=== PATIENT | female | born 1970 | race Caucasian/White ===

== ENCOUNTER 2016-05-21 23:29 | Emergency (ER) | payer OTHER ==
[~2016-05-21] VITALS: Ht 154.9 cm; Wt 90.4 kg
[~2016-05-21 23:29] MED LIST: ABILIFY15 MG PO; ABILIFY30 MG PO; ALPRAZOLAM ER1 MG PO; AMBIEN5 MG PO; ATARAX,VISTARIL50 MG PO; BACLOFEN10 MG PO; CIPRO500 MG PO; CLARITIN10 M3 PO; CLONAZEPAM1 MG PO; CLONIDINE HCL0.1 MG PO; CYMBALTA60 MG PO; Claritin,Alavart PO; Cymbalta PO; DESYREL 150 MG150 MG PO; DILAUDID2 MG PO; DOXEPIN PO; Depakote PO; ENDOCET 10-6501 EACH PO; FLEXERIL10 MG PO; GLYCOLAX225 GM PO; KLONOPIN1 MG PO; KlonoPIN PO; LATUDA20 MG PO; LEVOTHROID50 MCG PO; LEVOTHYROXINE50 MCG PO; LITHIUM CARBON300 M2 PO; LYRICA25 MG PO; LYRICA75 MG PO; Levothroid,Synthroid PO; MOBIC15 MG PO; MONTELUKAST SOD10 MG PO; MOTRIN IB200 MG PO; MOTRIN400 MG PO; MOTRIN800 MG PO; Miralax, Glycolax PO; NEURONTIN100 MG PO; NORCO 5/3251 TABLET PO; OXCARBAZEPINE300 MG PO; PAXIL30 MG PO; PEN-VEE K,VEET500 MG PO; PERCOCET 10/1 TABLET PO; PREDNISONE10 MG PO; PRILOSEC OTC20 M1 PO; PROAIR HFA8.5 GM IH; PROZAC20 MG PO; Percocet 10/325,Endo PO; Relafen PO; SERTRALINE HCL100 MG PO; SIMVASTATIN20 MG PO; SINUS & ALLERG120 MG PO; SUMATRIPTAN SUC25 MG PO; TEMAZEPAM15 MG PO; TOPAMAX25 MG PO; TOPIRAMATE100 MG PO; TRAMADOL HCL50 MG PO; TRILEPTAL300 MG PO; TYLENOL EXTRA500 MG PO; ULTRAM50 MG PO; VYVANSE20 MG PO; XANAX1 MG PO; ZOLPIDEM TARTRAT5 MG PO; Zocor PO
[2016-05-22] MEDS ORDERED: NAPROSYN500 MG PO (01:27)
[2016-05-22] MEDS ORDERED: PREDNISONE20 MG PO (01:27)
[2016-05-22] MEDS ORDERED: MEDROL DOSEPAK4 MG PO (01:27)
[2016-05-22] MEDS ORDERED: FLEXERIL10 MG PO (01:37)
[2016-05-22 01:45] VITALS: BP 142/89
== END 2016-05-22 01:46 | disposition home or self-care (01) ==
LOC: EME 23:29
DX: M54.42 Lumbago with sciatica, left side (principal); J30.2 Other seasonal allergic rhinitis
CPT/HCPCS: 99281; 99284; J1100

== ENCOUNTER 2017-05-10 20:00 | Emergency (ER) | payer OTHER ==
[~2017-05-10] VITALS: Ht 152.4 cm; Wt 86.3 kg
[~2017-05-10 20:00] MED LIST changes: +MEDROL DOSEPAK4 MG PO; +NAPROSYN500 MG PO; +PREDNISONE20 MG PO
[2017-05-11] MEDS ORDERED: FLEXERIL10 MG PO (00:11)
[2017-05-11] MEDS ORDERED: PREDNISONE20 MG PO (00:11)
[2017-05-11] MEDS ORDERED: MOTRIN800 MG PO (00:11)
[2017-05-11 01:11] VITALS: BP 126/70
== END 2017-05-11 01:12 | disposition home or self-care (01) ==
LOC: RME 20:00 → EME 20:00 → RME 05-11 01:12
DX: M54.41 Lumbago with sciatica, right side (principal); M54.42 Lumbago with sciatica, left side; E78.5 Hyperlipidemia, unspecified; F31.9 Bipolar disorder, unspecified
CPT/HCPCS: 99281; 99284; J7512

== ENCOUNTER 2017-11-07 05:41 | Day surgery (SDC) | payer OTHER ==
[~2017-11-07] VITALS: Ht 152.4 cm; Wt 86.2 kg
[~2017-11-07 05:41] MED LIST changes: +CATAPRES0.2 MG PO; +ERGOCALCIF50000 UNIT PO; +INDERAL10 MG PO; +LATUDA120 MG PO; +LITHIUM CARBON300 MG PO; +LORCET PLUS 7.1 EACH PO; +NEURONTIN300 MG PO; +SINEQUAN50 MG PO; +TOPAMAX50 MG PO; +ZOCOR20 MG PO
[2017-11-07 06:12] VITALS: BP 109/67
[2017-11-07 11:45] VITALS: BP 119/69
[2017-11-07 12:40] VITALS: BP 139/75
== END 2017-11-07 12:54 | disposition home or self-care (01) ==
LOC: SDC
PROC: 0WBN4ZX Excision of Female Perineum, Percutaneous Endoscopic Approach, Diagnostic (ICD-10-PCS; principal; 2017-11-07)
PROC: 0UN14ZZ Release Left Ovary, Percutaneous Endoscopic Approach (ICD-10-PCS; principal; 2017-11-07)
PROC: 0UT14ZZ Resection of Left Ovary, Percutaneous Endoscopic Approach (ICD-10-PCS; principal; 2017-11-07)
PROC: 0UT64ZZ Resection of Left Fallopian Tube, Percutaneous Endoscopic Approach (ICD-10-PCS; principal; 2017-11-07)
PROC: 0TJB8ZZ Inspection of Bladder, Via Natural or Artificial Opening Endoscopic (ICD-10-PCS; principal; 2017-11-07)
DX: N80.9 Endometriosis, unspecified (principal); N83.12 Corpus luteum cyst of left ovary; N73.6 Female pelvic peritoneal adhesions (postinfective); N94.10 Unspecified dyspareunia; J45.909 Unspecified asthma, uncomplicated; E03.9 Hypothyroidism, unspecified; E78.5 Hyperlipidemia, unspecified
CPT/HCPCS: 88305; 88313; 94640; C1758; C1769; J0131; J0690; J1100; J1170; J1885; J2250; J2405; J2710; J3010; J3475; J7643

== ENCOUNTER → 2017-12-21 | Outpatient (CLI) | payer OTHER | END | disposition home or self-care (01) | LOC: NUC 13:38 | DX: M19.071 Primary osteoarthritis, right ankle and foot (principal); M19.072 Primary osteoarthritis, left ankle and foot; M47.892 Other spondylosis, cervical region; M47.896 Other spondylosis, lumbar region | CPT/HCPCS: 78315; 78999; A9503 ==